=== PATIENT | male | born 1975 | race Asian ===

== ENCOUNTER 2019-09-14 21:34 | Emergency (ER) | payer BC ==
[~2019-09-14] VITALS: Ht 172.7 cm; Wt 83.9 kg
[2019-09-14 21:47] VITALS: BP_SYST 160
--- NOTE | 2019-09-15 00:50 | NUR ---
Pt called in x 3, no answer. Patient left without being seen. No further treatment provided. ERMD aware
== END 2019-09-15 00:50 | disposition left against medical advice (07) ==
LOC: SED 21:34
DX: S81.011A Laceration without foreign body, right knee, initial encounter (principal); W45.8XXA Other foreign body or object entering through skin, initial encounter; Y93.89 Activity, other specified; Y92.89 Other specified places as the place of occurrence of the external cause; Y99.8 Other external cause status; Z53.21 Procedure and treatment not carried out due to patient leaving prior to being seen by health care provider